=== PATIENT | female | born 1995 | race Two or more races ===

== ENCOUNTER 2024-11-29 11:49 | Emergency (ER) | payer MEDICAID, SELFPAY ==
--- NOTE | 2024-11-29 12:46 | EKG_ITS ---
[facility] (Formerly [facility]) Test Date: 2024-11-29 Pat Name: BENITO YOOENCIODepartment: Room: - Gender: Female Contact [employer]inter [employer]: : 1995 Requested By: Ryan Gore Order Number: [id number] Reading MD: Ryan Gore Measurements Intervals [place] Rate: 93 P: 58 ND: 116 QRS: 34 QRSD: 89 T: 41 QT: 366 QTc: 456 Interpretive Statements SINUS RHYTHM WITH SHORT ND INTERVAL No previous ECG available for comparison /store/S0/[id number]/ecg/[id number].pdf
--- NOTE | 2024-11-29 12:49 | PD.EDRME ---
Rapid Medical Screening Exam RME Arrival date/time: 11/29/24 11:49 29-year-old female with no known medical history presents to the emergency room with a chief complaint of a syncopal episode that occurred today at the store. Patient states she lost consciousness and fainted and does not remember the event. Patient states she was with a friend and states that she was able to bring her down to the floor and denies any head injury. Patient is currently 22 weeks she is a G4, P2. Patient denies any vaginal bleeding or pelvic pain. I have greeted and performed a focused initial assessment of this patient. A comprehensive ED assessment and evaluation of the patient, analysis of all test results, and completion of the medical decision making process will be conducted by additional ED providers. Chief Complaint: Syncope / Near Syncope Time Seen by Provider: 11/29/24 12:08 Vital signs reviewed by provider: Yes
[2024-11-29 12:57] VITALS: BP 113/74; PULSE 78; RESP 16; TEMP 37.1; O2SAT 100; BMI 31.1
[2024-11-29 13:13] LABS: Collection Type, Urine Clean Catch
[2024-11-29 13:18] LABS: Basophils % (Auto) 0 % (0-2.5); Eosinophils % (Auto) 0 % (0-10); Hematocrit 34.8 % (36.0-46.0); Hemoglobin 12.1 g/dL (12.0-16.0); Immature Granulocytes % (Auto) 1 % (0-0); Immature Granulocytes Auto 0.05 Thou/mm3 (0.00-0.00); Lymphocytes # (Auto) 1.4 Thou/mm3 (1.0-4.8); Lymphocytes % (Auto) 19 % (10-50); Mean Corpuscular HGB Conc 34.8 g/dl (31.0-37.0); Mean Corpuscular Hemoglobin 30.9 pg (25.0-35.0); Mean Corpuscular Volume 89 fL (80-100); Monocytes # (Auto) 0.4 Thou/mm3 (0.0-0.8); Monocytes % (Auto) 6 % (0-12); Neutrophils # (Auto) 5.2 Thou/mm3 (1.8-7.7); Neutrophils % (Auto) 74 % (37-80); Nucleated Red Blood Cell % 0 /100 WBC (0); Platelet Count 192 Thou/mm3 (140-440); RDW Standard Deviation 43.3 fL (36.4-46.3); Red Blood Count 3.92 Miln/mm3 (4.00-5.20)
[2024-11-29 13:31] LABS: Bilirubin,Urine Negative (Negative); Blood,Urine Negative (Negative); Clarity,Urine Turbid (Clear/Hazy); Color,Urine Yellow (Lt Yel-Yel); Glucose, Urine Negative (Negative); Ketones,Urine Negative (Negative); Leukocyte Esterase,Urine Positive (Negative); Nitrite,Urine Negative (Negative); Protein,Urine Trace (Neg - Trace); RBC,Urine 4 /hpf (0-3); Specific Gravity,Urine 1.019 (1.001-1.035); Squamous Epithelial Cell,Urine 10 /hpf (0-5); Urobilinogen,Urine Negative mg/dL (0.0-1.0); WBC,Urine 10 /hpf (0-5)
[2024-11-29 13:42] LABS: Alanine Aminotransferase 17 U/L (10-49); Albumin, Serum 4.5 gm/dL (3.5-5.0); Albumin/Globulin Ratio 1.7 (1.2-2.2); Alkaline Phosphatase 51 U/L (46-116); Anion Gap 2 (7-16); Aspartate Amino Transferase 14 U/L (0-34); BUN/Creatinine Ratio 10 Ratio (12-20); Bilirubin,Total 0.3 mg/dL (0.3-1.2); Blood Urea Nitrogen 6 mg/dL (9-23); Calcium 9.7 mg/dL (8.3-10.6); Calcium (Corrected) 9.7 mg/dL (8.5-10.1); Carbon Dioxide 24.4 mMol/L (20.0-31.0); Chloride 109 mMol/L (98-107); Creatinine (Component) 0.6 mg/dL (0.6-1.3); Globulin 2.6 gm/dL (2.3-3.5); Glucose 81 mg/dL (74-106); Osmolality,Calculated 266 (275-295); Potassium 3.5 mMol/L (3.4-5.1); Sodium 135 mMol/L (136-145); Total Protein 7.1 gm/dL (5.7-8.2); Troponin I < 0.002 ng/mL (0.0-0.045); eGFR > 60 See Note
[2024-11-29 14:11] LABS: Beta HCG,Quantitative 18615 mIU/mL (<5.0)
--- NOTE | 2024-11-29 16:02 | PD.EDSYNC ---
ED Syncope RME/HPI General Chief Complaint: Syncope / Near Syncope Stated Complaint: SYNCOPAL EPISODE Time Seen by Provider: 11/29/24 12:08 Arrival date/time: 11/29/24 11:49 RME / HPI RME / HPI narrative: 29-year-old female with no known medical history presents to the emergency room with a chief complaint of a syncopal episode that occurred today at the store. Patient states she lost consciousness and fainted and does not remember the event. Patient states she was with a friend and states that she was able to bring her down to the floor and denies any head injury. Patient is currently 22 weeks she is a G4, P2. Patient denies any vaginal bleeding or pelvic pain. Denies any vaginal bleeding or spotting. Denies any other complaints. Related Data Allergies Allergy/AdvReac Type Severity Reaction Status Date / Time No Known Allergies Allergy Verified 07/15/24 09:13 Review of Systems Review of Systems Narrative Review of Systems: Review of system reviewed and within normal limits except mentioned in HPI ED Exam Narrative Physical exam: VITAL SIGNS: Reviewed. GENERAL APPEARANCE: Alert and interactive, follows commands, no acute distress, HEAD AND FACE: Non-traumatic. ENT: PERRL, pink conjunctivitis, eyelid no trauma, Mucous membrane moist. NECK: Supple, nontender, no nuchal rigidity. CHEST: No tenderness, no crepitus, no paradoxical movement, no retractions. LUNGS: Clear, well ventilated, symmetric, no rales, no wheezing, no ronchi, no stridor, good breath sounds bilaterally. HEART: Regular rate, regular rhythm, no murmur, no gallops. ABDOMEN: Soft, positive bowel sounds, nondistended, no guarding, nontender, no rebound, no masses, RECTAL: Deferred. GENITAL: Deferred. NEUROLOGICAL: Gross motor function intact sensory function intact, Appropriate for age. MUSCULOSKELETAL: low back nontender, full range of motion. EXTREMITIES: Nontender, full range of motion. SKIN: Color pink, dry, no rash, no lacerations, no abrasions, no contusions. LYMPHATICS: Deferred. Course Quality Measures none Orders Category Date Time Status EKG (ED ONLY) *Do not use* NOW Care 11/29/24 12:47 Completed EKG (ED Only) Stat Exams 11/29/24 12:46 Draft Beta HCG,Quantitative Stat Lab 11/29/24 13:06 Completed CBC Stat Lab 11/29/24 13:06 Completed Comprehensive Metabolic Panel Stat Lab 11/29/24 13:06 Completed Troponin I Stat Lab 11/29/24 13:06 Completed Urinalysis Stat Lab 11/29/24 13:07 Completed Urine Culture Stat Lab 11/29/24 12:47 Received Vital Signs Vital signs: Vital Signs Temperature 98.7 F 11/29/24 12:57 Pulse Rate 78 11/29/24 12:57 Respiratory Rate 16 11/29/24 12:57 Blood Pressure 113/74 11/29/24 12:57 Pulse Oximetry (%) 100 11/29/24 12:57 Oxygen Delivery Method Room Air 11/29/24 12:57 Syncope MDM Narrative MDM Narrative:: 29-year-old female with no known medical history presents to the emergency room with a chief complaint of a syncopal episode that occurred today at the store. Patient states she lost consciousness and fainted and does not remember the event. Patient states she was with a friend and states that she was able to bring her down to the floor and denies any head injury. Patient is currently 22 weeks she is a G4, P2. Patient denies any vaginal bleeding or pelvic pain. Denies any vaginal bleeding or spotting. Denies any other complaints. Patient's workup all came back normal. On multiple reevaluation patient is ambulatory with no recurrence of the symptoms. Patient was advised to follow-up closely with INJURY/SAFETY HAZARD ASSESSMENT or return to emergency room for recurrence of symptoms. Patient data External records reviewed:: None Clinical information provided by:: patient Social determinants that could affect healthcare access:: none Patient has the following chronic illnesses:: None How is presenting disease/condition affected by chronic disease/condition?: no chronic disease Evaluation data The following diagnostics were reviewed and interpreted by me:: lab results and radiology exam(s) Lab and/or radiology exams considered but not ordered:: None Interpretation Summary: EKG showed normal sinus rhythm, ventricular rate of 93 bpm, no ST segment elevation depression noted. Patient's laboratory workup including urinalysis all came back normal. Medications / Prescriptions Medications or Prescriptions considered but not ordered:: None Medication administrations:: None Consultations Consultation(s) initiated? (list below): No Diagnosis Syncope Differential Diagnosis: syncope due to orthostatic hypotension, vasovagal syncope and dehydration Most likely diagnosis given after review of the tests above:: Vasovagal syncope, 22 weeks Admission Indicated Admission indicated?: not indicated Admission Request Was there a request for admission?: No Disposition Plan Disposition Plan: Discharge Discharge Attestation Discharge Attestation: The patient was given an opportunity to ask questions and understood the discharge instructions. Discharge instructions specifically effects, indications for sooner follow up or return to the emergency department, and the expected course of current diagnosis. Patient condition: Stable Discharge Plan Plan Patient Disposition: HOME (Self Care) Disposition Comment: stable Problem List Clinical Impression: Near syncope Patient/Caregiver Discharge Instructions Discharge Activity: activity as tolerated Education Materials: ED Near-Fainting- Vagal Reaction Additional Instructions: Thank you for the opportunity for serving you today. You are stable for discharged . You are advised to: Follow-up with your PCP in 1 to 2 days Return to ED for worsening of symptoms Increase oral fluids Print Language: Citizen Of [place] Stand Alone Forms: Estefani Award Info., Patient Portal Info Letter JARRETT/RAGINI Supervising Physician JARRETT/RAGIIN Supervising Physician: MD Elizabeth
== END 2024-11-29 16:48 | disposition home or self-care (01) ==
LOC: SERX 16:34
PROVIDERS: Nurse Practitioner Family; Emergency Provider Emergency Medicine; PCP Family Medicine
DX: O26.892 Other specified pregnancy related conditions, second trimester (principal); R55 Syncope and collapse; Z3A.22 22 weeks gestation of pregnancy
CPT/HCPCS: 36415; 80053; 81001; 84484; 84702; 85025; 87086; 93005; 99283

== ENCOUNTER 2025-03-26 20:37 | Observation (INO) | payer MEDICAID, SELFPAY ==
[2025-03-26 20:39] VITALS: BP 120/65; PULSE 79; RESP 18; RESP 97; TEMP 36.8
[2025-03-26 20:40] VITALS: BP 120/65; PULSE 80
[2025-03-26 21:04] VITALS: BMI 32.0
== END 2025-03-26 21:35 | disposition home or self-care (01) ==
PROVIDERS: Admitting Provider Specialist; Visit Provider Specialist
DX: O36.8130 Decreased fetal movements, third trimester, not applicable or unspecified (principal); O26.893 Other specified pregnancy related conditions, third trimester; R10.9 Unspecified abdominal pain; Z3A.40 40 weeks gestation of pregnancy
CPT/HCPCS: 59025; 59899

== ENCOUNTER 2025-03-28 11:34 | Inpatient (IN) | payer MEDICAID, SELFPAY ==
[2025-03-28] VITALS (17 sets, daily range): BP systolic 91–119; BP diastolic 50–68; PULSE 65–85; RESP 14; TEMP 36.4–36.6; BMI 31.8
[2025-03-28] MEDS: RINGERS LACTATED 1000 ML 1,000 ML 100 ML IV (13:15)
[2025-03-28] MEDS: MISOPROSTOL 50 mCg TABLET PO ×3 (14:06→22:33)
[2025-03-28 14:50] LABS: Basophils % (Auto) 0 % (0-2.5); Eosinophils % (Auto) 0 % (0-10); Hematocrit 32.5 % (36.0-46.0); Hemoglobin 11.4 g/dL (12.0-16.0); Immature Granulocytes % (Auto) 1 % (0-0); Immature Granulocytes Auto 0.04 Thou/mm3 (0.00-0.00); Lymphocytes # (Auto) 1.7 Thou/mm3 (1.0-4.8); Lymphocytes % (Auto) 26 % (10-50); Mean Corpuscular HGB Conc 35.1 g/dl (31.0-37.0); Mean Corpuscular Hemoglobin 30.5 pg (25.0-35.0); Mean Corpuscular Volume 87 fL (80-100); Monocytes # (Auto) 0.4 Thou/mm3 (0.0-0.8); Monocytes % (Auto) 7 % (0-12); Neutrophils # (Auto) 4.2 Thou/mm3 (1.8-7.7); Neutrophils % (Auto) 66 % (37-80); Nucleated Red Blood Cell % 0 /100 WBC (0); Platelet Count 149 Thou/mm3 (140-440); RDW Standard Deviation 46.4 fL (36.4-46.3); Red Blood Count 3.74 Miln/mm3 (4.00-5.20); White Blood Count 6.4 Thou/mm3 (3.6-11.0)
--- NOTE | 2025-03-28 14:58 | ESHP_ITS ---
Documentation for date of: 03/28/25 OB Labor/Induct. HPI History of Present Illness Chief complaint: 29 y/o 40w 4d present to L&D for IOL : 4 Para: 2 Term pregnancies: 2 pregnancies: 0 Living children: 2 History of Abortions: Spontaneous and Elective: 1 History of Vaginal deliveries: 2 History of sections: No History of : No Date of last menstrual period: 06/09/25 DWIGHT: 03/24/25 Gestational age based on last menstrual period: -10 History of present illness: 29 y/o 40w 4d present to L&D for IOL due to postdates. Cervix is 2/60/-3 vertex. EFW 3400g. has been uncomplicated with the excption of RH negative status. RHOGAM given at 28 weeks. History of Present Dating criteria: based on 1st trimester US only Adequate Care: Yes Ultrasounds: normal 1st trimester US and normal mid trimester US Obstetrical complications: other (RH ng) Medical complications: none Labs Maternal Blood Type: B Neg Labs: Positive: Rubella Titre, Negative: RPR, Hepatitis B, HIV, Chlamydia, Gonorrhea and Group Beta Strep and Unknown: Herpes Type 1, Herpes Type 2 and Covid-19 Review of Systems Review of Systems Systems Reviewed: All systems reviewed, normal except as documented Past Medical History Surgical History SURGICAL: Negative Section Meds Home Medications and Allergies Home Medications ?Medication ?Instructions ?Recorded ?Confirmed ?Type No Known Home Medications 03/28/2503/18 History Allergies Allergy/AdvReac Type Severity Reaction Status Date / Time No Known Allergies Allergy Verified 03/28/25 11:44 OB Exam Physical Exam Vital signs: Temp Pulse Resp BP O2 Del Method 97.5 F 75 14 108/62 Room Air 03/28/25 11:50 03/28/25 14:49 03/28/25 11:50 03/28/25 14:49 03/28/25 11:50 Constitutional Constitutional: no acute distress Routine HEENT Exam Head: Present normocephalic and atraumatic Eye: Present EOMI, PERRL and normal accommodation ENT: Present mucous membranes moist Routine Neck Exam Neck: Present full ROM Routine Respiratory Exam Respiratory: Absent respiratory distress Routine Cardiovascular Exam Cardiovascular: Present RRR Routine Abdominal Exam Abdominal: Present soft and normoactive bowel sounds Comments: Gravid Uterus EFW 3400g Routine Exam External: Present normal urethra appearance; Absent lesions Detailed Labor and Delivery Exam Dilation (cm): 2 Effacement (%): 60 Cervix position: posterior station: -3 Consistency: soft Presentation: Vertex (Per RN exam) Membranes: intact Baseline heart rate: 125 monitor accelerations: 15x15 monitor decelerations: None watermelon inspector variability: Moderate (11-25) Contraction frequency (min): None Routine Extremities Exam Extremities: Present full ROM Routine Back/Spine/Pelvis Exam Back/Spine: Present full ROM Routine Skin Exam Skin: Present intact, dry and warm Routine Neurological Exam Neurological: Present alert, oriented X3 and CN II-XII intact Routine Psychiatric Exam Psychiatric: Present normal affect and normal thought process OB Results Labs 03/28/25 13:15 OB Assessment & Plan Assessment and Plan (1) Encounter for induction of labor: Status: Acute (2) Post term over 40 weeks: Status: Acute (3) Rh negative status during : Status: Acute Additional Plan Induction method: per misoprostol protocol Plan: induction, anticipate NVD and consult MD prn Additional Plan Comment: Routine Admit orders Consult anesthesia for an epidural Continuous EFM (3) Rh negative status during Qualifiers: Trimester: third trimester Qualified Code(s): O26.893 - Other specified related conditions, third trimester; Z67.91 - Unspecified blood type, Rh negative
--- NOTE | 2025-03-28 15:34 | PC.NURSE ---
Elizabeth translater [email or web address] used to complete admission questions
[2025-03-28 17:23] LABS: Syphilis Nonreactive (Nonreactive)
[2025-03-29] VITALS (98 sets, daily range): BP systolic 91–131; BP diastolic 52–76; PULSE 62–102; RESP 16–19; TEMP 36.3–36.7; O2SAT 87–100
[2025-03-29] MEDS: MISOPROSTOL 50 mCg TABLET PO (02:34)
--- NOTE | 2025-03-29 06:12 | PD.LDPN ---
Documentation for date of: 03/29/25 OB Labor Progress Note Pain Control Pain control: other (Requesting an epidural ) Pelvic Exam Dilation (cm): 3 Effacement (%): 70 station: 0 Amniotic membrane status: Ruptured Contractions Monitor mode: External Contraction frequency: 2-4 Contraction duration: 40-60 Contraction phase: Contraction Contraction intensity: Moderate Status status: Category l Assessment and Plan Assessment: induction ongoing Plan OB labor note: begin Pitocin augmentation Comments: AROM performed clear fluids Pt to get an epidural and then start low dose pitocin Anticipate Updated Dr. Upton
[2025-03-29] MEDS: fentaNYL CIT INJ 50 mCg/ML AMP 2ML 100 MCG IVP (06:23)
[2025-03-29] MEDS: MINERAL OIL 30 ML UDC TOP (09:20)
[2025-03-29] MEDS: OXYTOCIN in NS 20 units 20 UNIT/1,000 ML BAG 125 UNIT IV (09:29)
--- NOTE | 2025-03-29 09:43 | PD.LDDELS ---
Data (Gee) Data Hx Section: No Maternal Blood Type: B Neg Rubella Titre: Positive RPR: Non-reactive Labs: Negative: RPR, Hepatitis B, HIV, Chlamydia, Gonorrhea and Group Beta Strep and Unknown: Herpes Type 1 and Herpes Type 2 : 4 Para: 2 Term: 2 : 0 Livin Abortions: Spontaneous & Theraputic: 1 Delivery Data (Gee) Labor Data Initiation of labor: Induction Induction/Augmentation Agent: Cytotec-PO ROM date: 03/29/25 ROM time: 06:08 Amniotic membrane rupture type: Spontaneous Amniotic fluid description: Clear Delivery Data EDC: 03/24/25 EDC calculated by:: ultrasound Onset of labor date: 03/29/25 Onset of labor time: 06:08 Complete dilation date: 03/29/25 Complete dilation time: 08:56 Mcgrann delivery date: 03/29/25 Mcgrann delivery time: 09:22 Gestational age (weeks): 40 Gestational age (days): 5 Placenta delivery date: 03/29/25 Placenta delivery time: 09:29 Stage 1 total time: Labor - Stage 1 Duration 2 hours and 48 minutes Delivered by: Nicole Gonsales Delivery nurse: Julia Rhodes RN [place]orn nurse: Lucia Lyons RN Delivery Method Delivery method: Normal Vaginal Delivery Presentation: Vertex position: OA Anesthesia Type Anesthesia Type: Epidural Delivery Room Medications Delivery room medications: Pitocin 20 u IV and other (TXA) Placenta Placenta delivery description: Spontaneous Cord blood sent to lab: Yes cord blood collection: Cord Blood Type Episiotomy Episiotomy description: None Lacerations #1: Perineal: 1st degree Perineal repair Sutures used for repair: 3.0 Vicryl (CT) EBL Estimated blood loss (ml): 300 Umbilical Cord cord description: 3 Vessels and Nuchal Cord (tight nuchal x3 ) Additional Procedures AROM was performed at 6 AM patient was complete 3 hours later after a couple of pushes had an of a viable female infant. Infant's head delivered with tight nuchal cord x 3 easily reduced then infant's anterior shoulder delivered with gentle downward traction subsequent delivery of the posterior shoulder and the body without complications. Infant placed on mother's abdomen. Vigorous cry upon delivery. Cord was clamped then cut by CNM. Cord blood obtained. Three-vessel cord noted. Placenta expelled spontaneously and intact. Patient sustained a first-degree perineal laceration. Repaired using a 3-[address] suture. Excellent hemostasis achieved after vigorous fundal massage and removal of clots from the posterior fornix. EBL 300. Sponge and needle count correct. Mother and baby stable, skin to skin and bonding in LDR. Mcgrann Data (Gee) Mcgrann Data order: 1 Mcgrann's gender: Female Identification band number: [id number] weight (gms): 3620 g Weight (pounds): 7 lbs and 15.7 ozs length: 50.8 cm 1 minute: 9 5 minutes: 9
[2025-03-29] MEDS: TRANEXAMIC ACID 1,000 MG IVPB 1,000 MG/100 ML BAG 200 MG IV (10:11)
[2025-03-29 15:43] LABS: Basophils % (Auto) 0 % (0-2.5); Eosinophils % (Auto) 0 % (0-10); Hematocrit 26.9 % (36.0-46.0); Hemoglobin 9.6 g/dL (12.0-16.0); Immature Granulocytes % (Auto) 0 % (0-0); Immature Granulocytes Auto 0.04 Thou/mm3 (0.00-0.00); Lymphocytes # (Auto) 1.6 Thou/mm3 (1.0-4.8); Lymphocytes % (Auto) 17 % (10-50); Mean Corpuscular HGB Conc 35.7 g/dl (31.0-37.0); Mean Corpuscular Hemoglobin 30.7 pg (25.0-35.0); Mean Corpuscular Volume 86 fL (80-100); Monocytes # (Auto) 0.8 Thou/mm3 (0.0-0.8); Monocytes % (Auto) 9 % (0-12); Neutrophils # (Auto) 6.9 Thou/mm3 (1.8-7.7); Neutrophils % (Auto) 74 % (37-80); Nucleated Red Blood Cell % 0 /100 WBC (0); Platelet Count 150 Thou/mm3 (140-440); RDW Standard Deviation 45.1 fL (36.4-46.3); Red Blood Count 3.13 Miln/mm3 (4.00-5.20); White Blood Count 9.3 Thou/mm3 (3.6-11.0)
[2025-03-29] MEDS: IBUPROFEN TAB 400 MG TABLET 800 MG PO (15:56)
[2025-03-29] MEDS: HYDROcodone/APAP 5/325 TABLET 1 TAB PO (20:05)
[2025-03-30 00:10] VITALS: BP 110/63; PULSE 60; RESP 19; TEMP 36.6; O2SAT 99
[2025-03-30 04:05] VITALS: BP 91/56; PULSE 73; RESP 18; TEMP 36.6; O2SAT 98
--- NOTE | 2025-03-30 06:48 | PD.LDDS ---
DS: Providers Provider Date of admission: 03/28/25 11:34 Primary care physician: Oswald Desouza MD Admitting Provider: Nicole Gonsales CNM Attending Provider on Admission: Nicole Gonsales CNM Attending Provider on DC: Nicole Gonsales CNM Discharging Provider: Nicole Gonsales CNM Anticipated date of discharge: 03/30/25 DS: Diagnosis Discharge Diagnosis (1) Normal spontaneous vaginal delivery: Status: Acute (2) Encounter for care of lactating mother: Status: Acute (3) Rh negative status during : Status: Acute (4) Post term over 40 weeks: Status: Acute (5) Encounter for induction of labor: Status: Acute Problem List Completed Was Problem List Reviewed/Reconciled?: Yes Summary/Hosp Course Brief History: 29 y/o 40w 4d present to L&D for IOL due to postdates. Cervix is 2/60/-3 vertex. EFW 3400g. has been uncomplicated with the excption of RH negative status. RHOGAM given at 28 weeks. 03/29/25: AROM was performed at 6 AM patient was complete 3 hours later after a couple of pushes had an of a viable female . Infant's head delivered with tight nuchal cord x 3 easily reduced then 's anterior shoulder delivered with gentle downward traction subsequent delivery of the posterior shoulder and the body without complications. placed on mother's abdomen. Vigorous cry upon delivery. Cord was clamped then cut by SHAREE. Cord blood obtained. Three-vessel cord noted. Placenta expelled spontaneously and intact. Patient sustained a first-degree perineal laceration. Repaired using a 3-[address] suture. Excellent hemostasis achieved after vigorous fundal massage and removal of clots from the posterior fornix. EBL 300. Sponge and needle count correct. Mother and baby stable, skin to skin and bonding in LDR. 03/30/25: PPD#1 patient is stable and afebrile. Doing well and . Denies dizziness shortness of breath. Ambulating to the bathroom voiding with no problems. Uterus is nontender fundus firm minimal lochia. Discharge instructions given. Patient to follow-up with Nicole Gonsales CNM in 3 weeks Peripartum Data Delivery Method: Normal Vaginal Delivery Episiotomy Description: None Laceration Description: yes and see Delivery Summary complications: none [place] 1: Gender: Female Disposition of : home Status at Discharge Cognitive/behavioral status at discharge: Alert and oriented x 3 Functional status at discharge: independent ambulation Overall status at discharge: patient is progressing back to baseline Time Spent with Patient Time attestation: Total time spent providing and/or coordinating discharge services: Time spent: Greater than 30 minutes Exam Vital Signs Temp Pulse Resp BP Pulse Ox O2 Del Method 97.8 F 74 16 103/64 100 Room Air 03/29/25 07:26 03/29/25 09:40 03/29/25 07:26 03/29/25 09:40 03/29/25 09:45 03/29/25 07:26 Constitutional Constitutional: no acute distress Routine HEENT Exam Head: Present normocephalic and atraumatic Eye: Present EOMI, PERRL and normal accommodation ENT: Present mucous membranes moist Routine Neck Exam Neck: Present full ROM Routine Respiratory Exam Respiratory: Present chest non-tender, lungs clear, normal breath sounds and no resp distress Routine Cardiovascular Exam Cardiovascular: Present RRR Routine Abdominal Exam Abdominal: Present soft and normoactive bowel sounds Comments: Uterus nontender Fundus Routine Exam Patient deferred: external exam Routine Extremities Exam Extremities: Present full ROM, pulses intact and normal capillary refill; Absent tenderness Routine Back/Spine/Pelvis Exam Back/Spine: Present full ROM Routine Skin Exam Skin: Present intact, dry and warm Routine Neurological Exam Neurological: Present alert, oriented X3 and CN II-XII intact Routine Psychiatric Exam Psychiatric: Present normal affect and normal thought process Discharge Plan Plan Patient Disposition: HOME (Self Care) Patient condition on transfer: Stable Prescriptions/Referrals Prescriptions/Med Rec: New ibuprofen 800 mg tablet 800 mg PO Q6H MDD 4 PRN (Reason: pain) Qty: 60 0RF docusate sodium [Colace] 100 mg capsule 100 mg PO BID Qty: 60 0RF lanolin 50 % ointment 1 applic topical TID PRN (Reason: skin irritation) Qty: 15 0RF ferrous sulfate 325 mg (65 mg iron) tablet 325 mg PO TID Qty: 90 0RF Referrals: Oswald Desouza MD [Primary Care Provider] - Patient/Caregiver Discharge Instructions Meds to Beds: No Discharge Activity: activity as tolerated Other Discharge Activity Instructions:: Follow-up with Nicole Gonsales CNM in 3 weeks Education Materials: After Delivery Concerns, : Caring for Yourself Print Language: [place] Stand Alone Forms: Estefani Award Info., Patient Portal Info Letter Vaccines Vaccines Given During Stay: Rhogam Discharge Order Discharge Orders: Discharge (Routine); Ordered 03/30/25 Ordered By: Nicole Gonsales Planned Discharge Date 03/30/25 (3) Rh negative status during Qualifiers: Trimester: third trimester Qualified Code(s): O26.893 - Other specified related conditions, third trimester; Z67.91 - Unspecified blood type, Rh negative
[2025-03-30 08:27] VITALS: BP 110/68; PULSE 62; RESP 18; TEMP 36.7; O2SAT 98
[2025-03-30] MEDS: DOCUSATE SOD 100 MG CAPSULE PO (08:40)
[2025-03-30 08:44] VITALS: BP 108/77; PULSE 88; RESP 18; TEMP 36.8; O2SAT 98
--- NOTE | 2025-03-30 11:28 | PC.CC ---
Patient is a 29-year-old, female, present to for delivery of baby girl. ASWGina, met with patient [id number] to do initial assessment due mother having a history of Anxiety. ASW introduced herself, role in the agency, reason for visit, and discussed limits of confidentiality. At bedside was patient's , Paul Sims whom she provided verbal consent to remain in the room during assessment. Patient appeared alert and oriented to self, time, place, and situation. Patient made good eye contact. Patient was cooperative. Patient?s behavior appeared ordinary. No signs of delusions or hallucinations. Patient reports she was diagnosed with generalized anxiety during her as was receiving therapy at [facility] but discharged herself as she felt better. Patient reports she is no longer having anxiety symptoms. Patient denied any other mental health issues. Per patient, she is aware of how to seek help should the anxiety return. The father of the baby, Paul Sims is involved and mother has two other sons with him ages 10 years-old and 6 years-old. Patient denied domestic violence and history with CWS. Patient reports that her support system includes her . Patient has all the supplies she needs for her and plans on both formula and breast feeding. Patient is receiving WIC. ABW provided psychoeducation regarding baby blues and Post- Depression, as well as counseling groups at [facility], and [facility]. SW provided community resources: Warm Line and Crisis Line.
== END 2025-03-30 15:47 | disposition home or self-care (01) | DRG 560 ==
LOC: S4SX 03-29 11:15 → S4NX 03-29 13:28
PROVIDERS: Admitting Provider Nurse Practitioner Women's Health; PCP Family Medicine; Visit Provider Nurse Practitioner Women's Health
DX: O48.0 Post-term pregnancy (principal); Z37.0 Single live birth; O26.899 Other specified pregnancy related conditions, unspecified trimester; Z67.21 Type B blood, Rh negative; O69.1XX0 Labor and delivery complicated by cord around neck, with compression, not applicable or unspecified; O70.0 First degree perineal laceration during delivery; Z67.91 Unspecified blood type, Rh negative
CPT/HCPCS: 36415; 85025; 85461; 86780; 86850; 86900; 86901; J2590; J2790; J2795; J3010; J3490; J7120; A9270